=== PATIENT | female | born 1950 | race Asian ===

== ENCOUNTER 2017-03-24 13:35 | Emergency (ER) | payer OTHER ==
[~2017-03-24] VITALS: Ht 165.1 cm; Wt 60.0 kg
[2017-03-24 13:50] VITALS: BP 128/76; PULSE 65; RESP 16; TEMP 97.8; O2SAT 98
[2017-03-24] MEDS ORDERED: ASPI81CH (14:04)
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
[2017-03-24] MEDS ORDERED: ACETAMINOPHEN 500 MG CPLT PO ONE (16:45)
[2017-03-24] MEDS ORDERED: TYLE325T PO (17:01)
== END 2017-03-24 17:49 | disposition home or self-care (01) ==
LOC: NEPC 13:35
DX: R51 Headache (principal); M54.2 Cervicalgia; E04.1 Nontoxic single thyroid nodule; I10 Essential (primary) hypertension; I25.10 Atherosclerotic heart disease of native coronary artery without angina pectoris; Z79.899 Other long term (current) drug therapy; V49.59XA Passenger injured in collision with other motor vehicles in traffic accident, initial encounter
CPT/HCPCS: 70450; 72125; 73030; 99285; L0150